=== PATIENT | male | born 1985 | race African-American/Black ===

== ENCOUNTER 2020-03-28 06:18 | Emergency (ER) | payer MEDICAID ==
[~2020-03-28 06:18] MED LIST: CLIN300C8 PO; HYDR-4833 PO; WARF10TA PO
== END 2020-03-28 07:15 | disposition left against medical advice (07) ==
LOC: ER 06:18
DX: R10.9 Unspecified abdominal pain (principal); Z53.21 Procedure and treatment not carried out due to patient leaving prior to being seen by health care provider